=== PATIENT | female | born 1945 | race Caucasian/White ===

== ENCOUNTER 2023-12-19 22:53 | Emergency (ER) | payer MEDICARE ==
[~2023-12-19] VITALS: Wt 70.3 kg
[2023-12-19] MEDS ORDERED: ELIQUIS5 M1 PO (23:08)
[2023-12-19] MEDS ORDERED: XANAX0.25 MG PO (23:08)
[2023-12-19] MEDS ORDERED: AZO1 EACH MC (23:08)
[2023-12-19] MEDS ORDERED: FUROSEMIDE20 M1 PO (23:09)
[2023-12-19] MEDS ORDERED: METOCLOPRAMIDE5 MG PO (23:09)
[2023-12-19] MEDS ORDERED: NORTRIPTYLINE H25 M1 PO (23:09)
[2023-12-19] MEDS ORDERED: POTASSIUM CHLO10 MEQ PO (23:10)
[2023-12-19] MEDS ORDERED: PRILOSEC20 M1 PO (23:10)
[2023-12-19] MEDS ORDERED: OLANZAPINE2.5 MG PO (23:10)
[2023-12-19 23:34] LABS: BASO % 0.7 % (0.0-1.0); EOS # 0.1 10*3/uL (0.0-0.4); EOS % 1.5 % (1.0-4.0); LYMPH # 1.8 10*3/uL (1.3-4.4); MEAN CELL VOLUME 94.2 fl (81.0-99.0); MEAN CORPUSCULAR HGB 30.9 pg (27.0-31.0); MEAN CORPUSCULAR HGB CONC 32.8 g/dl (33.0-37.0); MEAN PLATELET VOLUME 10.2 fl (9.6-12.3); MONO # 0.8 10*3/uL (0.1-1.0); MONO % 12.8 % (3.0-9.0); NEUT # 3.3 10*3/uL (2.3-7.9); NEUT % 54.8 % (47.0-73.0); PLATELET COUNT AUTOMATED 158 10*3/uL (130-400); RED BLOOD COUNT 4.14 10*6/uL (4.10-5.10); WHITE BLOOD COUNT 5.9 10*3/uL (4.8-10.8)
== END 2023-12-20 00:40 | disposition home or self-care (01) ==
LOC: ED 22:53
PROVIDERS: Internal Medicine
DX: K64.4 Residual hemorrhoidal skin tags (principal); I48.91 Unspecified atrial fibrillation; F41.9 Anxiety disorder, unspecified; F32.A Depression, unspecified; F03.90 Unspecified dementia, unspecified severity, without behavioral disturbance, psychotic disturbance, mood disturbance, and anxiety; M19.90 Unspecified osteoarthritis, unspecified site; Z88.8 Allergy status to other drugs, medicaments and biological substances

== ENCOUNTER 2025-02-06 18:55 | Emergency (ER) | payer MEDICARE ==
[~2025-02-06] VITALS: Ht 170.1 cm; Wt 64.4 kg
[~2025-02-06 18:55] MED LIST: AMMONIUM LACTA385 GM T; ANUCORT-HC25 MG R; AZO URINARY TR1 EAC1 PO; AZO1 EACH MC; BIOTIN5 M1 PO; CLOBETASOL 0.0560 G1 T; ELIQUIS5 M1 PO; FUROSEMIDE20 M1 PO; FUROSEMIDE40 MG PO; KLONOPIN1 M1 PO; METOCLOPRAMIDE5 MG PO; NATURE'S BLEND F1 MG PO; NORTRIPTYLINE H25 M1 PO; NORTRIPTYLINE H50 M1 PO; NORTRIPTYLINE25 MG PO; OLANZAPINE2.5 MG PO; Ondansetron4 MG PO; PANTOPRAZOLE SO40 MG PO; POTASSIUM CHLO10 MEQ PO; PRILOSEC20 M1 PO; PRISTIQ50 MG PO; REXULTI2 MG PO; RIVASTIGMINE1 EACH T; SUPER B WITH V1 EACH PO; VITAMIN A2400 MCG PO; VITAMIN D350 MC2 PO; XANAX0.25 MG PO; ZYPREXA2.5 MG PO
[2025-02-06 19:25] LABS: BASO # 0.0 10*3/uL (0.0-0.1); BASO % 0.7 % (0.0-1.0); EOS # 0.0 10*3/uL (0.0-0.4); EOS % 0.7 % (1.0-4.0); MEAN CELL VOLUME 94.7 fl (81.0-99.0); MEAN CORPUSCULAR HGB 31.9 pg (27.0-31.0); MEAN PLATELET VOLUME 10.0 fl (9.6-12.3); MONO # 0.5 10*3/uL (0.1-1.0); MONO % 9.4 % (3.0-9.0); NEUT # 2.7 10*3/uL (2.3-7.9); NEUT % 50.6 % (47.0-73.0); NUCLEATED RED BLOOD CELL 0.0 % (0.0-0.0); NUCLEATED RED BLOOD CELL 0.0 10*3/uL (0.0-0.0); PLATELET COUNT AUTOMATED 168 10*3/uL (130-400); RED CELL DISTRI WIDTH 12.0 % (0-14.5)
[2025-02-06 19:36] LABS: ACT PARTIAL THROMBO TIME 27.1 SECONDS (20.0-32.1)
[2025-02-06 19:54] LABS: BUN 21.0 mg/dl (9-23)
[2025-02-06] MEDS ORDERED: COLACE100 MG PO (20:29)
[2025-02-06] MEDS ORDERED: ANUSOL HC30 GM T (20:29)
== END 2025-02-06 20:35 | disposition home or self-care (01) ==
LOC: ED 18:55
PROVIDERS: Emergency Medicine
DX: K64.9 Unspecified hemorrhoids (principal); R42 Dizziness and giddiness; R53.1 Weakness; Z88.8 Allergy status to other drugs, medicaments and biological substances; Z79.899 Other long term (current) drug therapy; Z90.49 Acquired absence of other specified parts of digestive tract; Z90.710 Acquired absence of both cervix and uterus; Z87.891 Personal history of nicotine dependence